=== PATIENT | female | born 1965 | race Caucasian/White ===

== ENCOUNTER → 2017-03-07 | Outpatient (CLI) | payer OTHER ==
--- NOTE | 2017-03-07 13:55 | Diagnostic Imaging Report ---
INDICATION: Digital mammogram bilateral screening. This study was compared to the prior exams of 08/31/12 and 07/23/11. At this time, there are no current complaints. The current study was also evaluated with a Computer Aided Detection (CAD) system. FINDINGS: The fibroglandular tissue in both breasts is heterogeneously dense. This does limit the sensitivity of this exam. Overall, there does not appear to have been any significant change when compared to the prior study. No primary or secondary sign of malignancy is noted. IMPRESSION: 1. There is no evidence of malignancy. 2. The patient should have her annual bilateral screening mammogram on schedule in February of 2018. ACR BI-RADS Category 1: Negative. Result letter will be mailed to the patient. Note: At least 10% of breast cancer is not imaged by mammography. Dictated by: Dictated on workstation # [id number]
== END ==
LOC: RAD 08:32
PROVIDERS: ATTEND Nurse Practitioner Family
DX: Z12.31 Encounter for screening mammogram for malignant neoplasm of breast (principal)
CPT/HCPCS: 77067

== ENCOUNTER → 2017-03-07 | Outpatient (CLI) | payer OTHER ==
--- NOTE | 2017-03-07 10:41 | Diagnostic Imaging Report ---
INDICATION: Scoliosis. Back pain. EXAM: 3 AP views of the thoracic and lumbar spine were obtained. COMPARISON: There are no prior studies available for comparison. FINDINGS: This exam is less than optimal due to the patient's body habitus. There is mild dextroscoliosis of the lower thoracic spine. Using the superior endplate of T9 and the inferior endplate of L1 as landmarks, the measured angle of scoliosis is 11 degrees plus or minus 2-3 degrees. There is also levoscoliosis of the lumbar spine. Using the superior endplate of L1 and the inferior endplate of L4 as landmarks, the measured angle of scoliosis is 10 degrees plus or minus 2-3 degrees. There is no fracture or acute bony abnormality identified. IMPRESSION: 1. There is dextroscoliosis of the lower thoracic spine and levoscoliosis of the lumbar spine. The measured angles of scoliosis respectively are 11 and 10 degrees plus or minus 2-3 degrees. 2. There is no acute bony abnormality identified. Dictated by: Dictated on workstation # [id number]
== END ==
LOC: RAD 08:39
PROVIDERS: ATTEND Nurse Practitioner Family
DX: M41.24 Other idiopathic scoliosis, thoracic region (principal); M41.26 Other idiopathic scoliosis, lumbar region
CPT/HCPCS: 72081

== ENCOUNTER → 2023-01-29 | Outpatient (CLI) | payer MEDICAID ==
--- NOTE | 2023-01-29 09:12 | Diagnostic Imaging Report ---
INDICATION: Back pain. History of scoliosis. COMPARISON: 03/07/2017 FINDINGS: Frontal radiographic views of the thoracic and lumbar spine were obtained and again show S-shaped scoliotic deformity of the thoracic and lumbar spine. Mild dextro scoliotic deformity is noted epicentered at the T11 level and measures approximately 11 degrees. This is stable. There is also mild to moderate levoscoliotic deformity epicentered at L2. This measures approximately 20 degrees and has progressed since previous exam. Multilevel degenerative changes are noted. Included portions of the lungs are clear. Included small bowel loops are nondilated. IMPRESSION: 1. S-shaped scoliotic deformity of the thoracolumbar spine as described above. Again, levoscoliotic component of the lumbar spine appears progressed. Dictated by: Dictated on workstation # [id number]
== END ==
LOC: RAD 08:08
PROVIDERS: ATTEND Physician Assistant
DX: M41.26 Other idiopathic scoliosis, lumbar region (principal)
CPT/HCPCS: 72081